=== PATIENT | female | born 1965 | race Caucasian/White ===

== ENCOUNTER 2023-05-28 22:22 | Emergency (ER) | payer SELFPAY ==
[~2023-05-28] VITALS: Ht 162.6 cm; Wt 68.9 kg
[2023-05-28 22:45] LABS: BASOPHILS # (AUTO) 0.1 (0.0-0.1); BASOPHILS % 0.8 % (0.0-1.0); EOSINOPHILS # (AUTO) 0.2 (0.0-0.4); EOSINOPHILS % 1.8 % (0.0-6.0); HEMATOCRIT 34.7 % (34.2-44.1); HEMOGLOBIN 11.7 g/dL (12.0-16.0); LYMPHOCYTES # (AUTO) 1.9 (1.0-3.2); LYMPHOCYTES % 22.8 % (18.0-39.1); MEAN CORPUSCULAR HEMOGLOBIN 29.3 pg (28-32); MEAN CORPUSCULAR HGB CONC 33.7 g/dL (31-35); MEAN CORPUSCULAR VOLUME 86.8 fL (81-99); MONOCYTES # (AUTO) 0.7 (0.2-0.8); MONOCYTES % 8.5 % (4.4-11.3); NEUTROPHILS # (AUTO) 5.6 (2.1-6.9); NEUTROPHILS % 65.9 % (38.7-80.0); PLATELET COUNT 353 x10e3/uL (140-360); RED CELL DISTRIBUTION WIDTH 12.9 % (11.7-14.4); WHITE BLOOD COUNT 8.51 x10e3/uL (4.8-10.8)
[2023-05-28 23:03] LABS: ALANINE AMINOTRANSFERASE 11 IU/L (0-55); ALBUMIN 3.9 g/dL (3.5-5.0); ALBUMIN/GLOBULIN RATIO 1.3 (0.8-2.0); ALKALINE PHOSPHATASE 82 IU/L (40-150); BLOOD UREA NITROGEN 18 mg/dL (7-26); BUN/CREATININE RATIO 18 (6-25); CALCIUM 9.6 mg/dL (8.4-10.2); CARBON DIOXIDE 25 mmol/L (22-29); CHLORIDE 106 mmol/L (98-107); CREATINE KINASE 83 IU/L (29-168); CREATININE, SERUM 0.98 mg/dL (0.57-1.11); GLUCOSE 102 mg/dL (74-118); SODIUM 143 mmol/L (136-145)
[2023-05-28] MEDS ORDERED: KETOROLAC TROMETHAMINE 30 MG/ML VIAL IV STA (23:18)
[2023-05-29] MEDS ORDERED: ULTRAM 50MG50 MG PO (00:56)
[2023-05-29 01:18] VITALS: BP 129/84; PULSE 87; RESP 18; TEMP 98.3; O2SAT 99
== END 2023-05-29 01:04 | disposition home or self-care (01) ==
LOC: ER 22:28
DX: R07.89 Other chest pain (principal); X50.1XXA Overexertion from prolonged static or awkward postures, initial encounter; Y92.89 Other specified places as the place of occurrence of the external cause
CPT/HCPCS: 36415; 71045; 71260; 80053; 82550; 83690; 83880; 84484; 85025; 85379; 93005; 99284; J1885